=== PATIENT | male | born 1975 | race Caucasian/White ===

== ENCOUNTER 2016-09-03 00:10 | Emergency (ER) | payer BC, OTHER ==
[~2016-09-03] VITALS: Ht 177.8 cm; Wt 95.2 kg
[2016-09-03 00:17] VITALS: TEMP 36.8; Ht 177.8 cm; Wt 95.2 kg
[2016-09-03] MEDS ORDERED: SODIUM CHLORIDE 0.9% 1000ML 1,000 ML IV ONE (00:30)
[2016-09-03] MEDS ORDERED: ONDANSETRON INJ 2 MG/ML 2 ML VIAL IV STA (00:30)
[2016-09-03] MEDS ORDERED: KETOROLAC TROMETHAMINE 30 MG/ML VIAL IV STA (00:30)
[2016-09-03 00:49] LABS: BASO % 0.7 %; BASO ABS # 0.04 K/uL (0-0.2); COMPLETE YES; EOS % 2.7 %; HEMATOCRIT 45.5 % (42-52); IG% 0.2 %; LYMPH % 37.3 %; LYMPH ABS # 2.06 K/uL (1.2-3.4); MEAN CELL VOLUME 88.9 fL (80-100); MEAN CORPUSCULAR HEMOGLOBIN 31.1 pg (25-34); MEAN CORPUSCULAR HGB CONC 34.9 g/dl (32-36); MEAN PLATELET VOLUME 9.6 fL (7.4-10.4); NEUT % 48.1 %; PLATELET COUNT 269 K/uL (130-400); RED BLOOD COUNT 5.12 M/uL (4.7-6.1); WHITE BLOOD COUNT 5.53 K/uL (4.8-10.8)
--- NOTE | 2016-09-03 01:02 | DIAGNOSTIC IMAGING REPORT ---
CT SCAN OF THE ABDOMEN AND PELVIS WITHOUT IV CONTRAST CLINICAL HISTORY: Left flank pain. Hematuria. COMPARISON STUDY: No priors. TECHNIQUE: CT scan of the abdomen and pelvis is performed from the lung bases to the proximal femora. Images are reviewed in the axial, sagittal, and coronal planes. IV contrast was not administered for this examination. Automated dose control exposure was utilized. CT DOSE: 1056.00 mGy.cm FINDINGS: Lung bases: The heart is normal in size and without pericardial effusion. The lung bases are clear. Liver: The unenhanced liver is normal in size, contour, and attenuation. There is no intrahepatic biliary ductal dilatation. Gallbladder: Unremarkable. Spleen: Normal in size and attenuation. There is a 1.8 cm low-attenuation structure in the spleen seen on image #115. Pancreas: Unremarkable. Adrenal glands: Adrenal glands are normal in appearance. Subcentimeter calcified nodules adjacent to the right adrenal gland are of doubtful significance. Kidneys: The unenhanced kidneys are normal in size. There is a 4 mm obstructing calculus in the mid left ureter at the level of L4 seen on axial image #238. This causes minimal left-sided hydronephrosis. There is no right-sided hydronephrosis. There is an additional punctate nonobstructing calculus in the left kidney. A 3 mm nonobstructing calculus is noted in the right kidney. Parapelvic cysts are suggested on the left. There is no evidence of contour deforming renal mass lesion. Abdominal vasculature: The abdominal aorta is normal in course and caliber. Bowel: The small bowel and colon are normal in course and caliber. A 10 mm duodenal lipoma is incidentally noted on image #171. The appendix is not identified and reported surgically absent. Peritoneum: There is no intraperitoneal free air or abdominal ascites. There is a fat-containing umbilical hernia. Lymphadenopathy: None. Pelvic viscera: The bladder is decompressed and not evaluated. The prostate and seminal vesicles are normal as imaged. 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 Skeletal structures: No lytic or blastic lesions are seen. IMPRESSION: 1. There is a 4 mm obstructing calculus in the mid left ureter. This causes minimal left-sided hydronephrosis. 2. Additional small nonobstructing calculi are seen in both kidneys. 3. Additional findings as above. Electronically signed by: Tyron Carr M.D. 09/03/2016 1:00 AM Dictated Date/Time: 09/03/2016 12:52 AM
[2016-09-03 01:07] LABS: BUN/CREATININE RATIO 20.1 (10-20); CALCIUM 8.7 mg/dl (8.5-10.1); CREATININE 0.98 mg/dl (0.60-1.40); POTASSIUM 3.6 mmol/L (3.5-5.1)
[2016-09-03 01:10] LABS: ALB/GLOB RATIO 1.4 (0.9-2)
[2016-09-03 01:42] LABS: URINE APPEARANCE CLEAR (CLEAR); URINE COLOR ORANGE; URINE NITRITE NEG (NEG); URINE PH 5.5 (4.5-7.5); URINE SPECIFIC GRAVITY 1.036 (1.000-1.030); UROBILINOGEN NEG (NEG); ZZUR CULT IF INDIC CLEAN CATCH NO
[2016-09-03 01:44] LABS: MANUAL MICROSCOPIC REQUIRED? NO; REVIEW REQ? NO; URINE BILIRUBIN NEG (NEG)
[2016-09-03] MEDS ORDERED: OXYC1TAB3 PO (01:45)
[2016-09-03] MEDS ORDERED: OXYCODONE IR HOME PACK PO ONE (01:45)
[2016-09-03] MEDS ORDERED: TAMS0.4C38 PO (01:45)
[2016-09-03] MEDS ORDERED: ONDANSETRON HOME PACK 4MG OD TAB PO ONE (01:45)
[2016-09-03] MEDS ORDERED: ONDA4TAB10 SL (01:45)
[2016-09-03 01:49] VITALS: BP 140/94; PULSE 72; O2SAT 96
--- NOTE | 2016-09-03 07:05 | EMERGENCY ROOM VISIT NOTE ---
History First contact with patient: 00:23 Chief Complaint: ABDOMINAL PAIN Stated Complaint: STOMACH PAIN Nursing Triage Summary: c/o llq abd pain for 2 days. does lift and use supplements including creatine urine dark in color. History of Present Illness The patient is a 40 year old male who presents to the Emergency Room with complaints of left-sided back pain that is radiating into his left lower quadrant. He states his pain is intermittent in nature. He did notice a change in his urine color, and states it is very dark today. The patient has not had fever or chills. He does have a history of kidney stones in the past. He rates his discomfort a 2/10 currently but a 9/10 at worst. He has not taken anything [id number] for his discomfort. Review of Systems More than 10 systems were reviewed and otherwise negative with the exception of history of present illness. Past Medical/Surgical History History of ureteral calculi Family History No pertinent family history Social History Smoking Status: Never Smoker Housing Status: lives with family Occupation Status: employed Current/Historical Medications Scheduled Ondasetron Odt (Zofran Odt), 4 MG SL Q6H Oxycodone Immediate Rel Tab (Roxicodone Ir), 1-2 TAB PO Q6 Tamsulosin Hcl (Flomax), 0.4 MG PO DAILY Physical Exam Vital Signs Date Time Temp Pulse Resp B/P (MAP) Pulse Ox O2 Delivery O2 Flow Rate FiO2 09/03/16 01:49 72 18 140/94 96 Room Air 09/03/16 01:02 66 18 143/92 96 Room Air 09/03/16 00:17 36.8 74 19 169/109 98 Room Air Pain Rating (0-10): 2.0 Physical Exam VITALS: Vitals are noted on the nurse's note and reviewed by myself. Vital signs stable. GENERAL: Well-developed, well-nourished, white male, who is in no acute distress and resting comfortably. Patient is cooperative with the examination. HEAD: Normocephalic atraumatic. HEART: Regular rate and rhythm without murmurs gallops or rubs. LUNGS: Clear to auscultation bilaterally without wheezes, rales or rhonchi. No retractions or accessory muscle use. ABDOMEN: Positive normal bowel sounds x 4. Soft, nontender, without masses or organomegaly. No guarding or rebound tenderness. No CVA tenderness. MUSCULOSKELETAL: No muscle atrophy, erythema, or edema noted. Full range of motion without joint tenderness in all extremities. Medical Decision & Procedures ER Provider Diagnostic Interpretation: CT SCAN OF THE ABDOMEN AND PELVIS WITHOUT IV CONTRAST CLINICAL HISTORY: Left flank pain. Hematuria. COMPARISON STUDY: No priors. TECHNIQUE: CT scan of the abdomen and pelvis is performed from the lung bases to the proximal femora. Images are reviewed in the axial, sagittal, and coronal planes. IV contrast was not administered for this examination. Automated dose control exposure was utilized. CT DOSE: 1056.00 mGy.cm FINDINGS: Lung bases: The heart is normal in size and without pericardial effusion. The lung bases are clear. Liver: The unenhanced liver is normal in size, contour, and attenuation. There is no intrahepatic biliary ductal dilatation. Gallbladder: Unremarkable. Spleen: Normal in size and attenuation. There is a 1.8 cm low-attenuation structure in the spleen seen on image #115. Pancreas: Unremarkable. Adrenal glands: Adrenal glands are normal in appearance. Subcentimeter calcified nodules adjacent to the right adrenal gland are of doubtful significance. Kidneys: The unenhanced kidneys are normal in size. There is a 4 mm obstructing calculus in the mid left ureter at the level of L4 seen on axial image #238. This causes minimal left-sided hydronephrosis. There is no right-sided hydronephrosis. There is an additional punctate nonobstructing calculus in the left kidney. A 3 mm nonobstructing calculus is noted in the right kidney. Parapelvic cysts are suggested on the left. There is no evidence of contour deforming renal mass lesion. Abdominal vasculature: The abdominal aorta is normal in course and caliber. Bowel: The small bowel and colon are normal in course and caliber. A 10 mm duodenal lipoma is incidentally noted on image #171. The appendix is not identified and reported surgically absent. Peritoneum: There is no intraperitoneal free air or abdominal ascites. There is a fat-containing umbilical hernia. Lymphadenopathy: None. Pelvic viscera: The bladder is decompressed and not evaluated. The prostate and seminal vesicles are normal as imaged. 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 Skeletal structures: No lytic or blastic lesions are seen. IMPRESSION: 1. There is a 4 mm obstructing calculus in the mid left ureter. This causes minimal left-sided hydronephrosis. 2. Additional small nonobstructing calculi are seen in both kidneys. 3. Additional findings as above. Laboratory Results 09/03/16 00:30 Red Blood Count 5.12, Mean Corpuscular Volume 88.9, Mean Corpuscular Hemoglobin 31.1, Mean Corpuscular Hemoglobin Concent 34.9, Mean Platelet Volume 9.6, Neutrophils (%) (Auto) 48.1, Lymphocytes (%) (Auto) 37.3, Monocytes (%) (Auto) 11.0, Eosinophils (%) (Auto) 2.7, Basophils (%) (Auto) 0.7, Neutrophils # (Auto ) 2.66, Lymphocytes # (Auto) 2.06, Monocytes # (Auto) 0.61, Eosinophils # (Auto ) 0.15, Basophils # (Auto) 0.04 09/03/16 00:30 Test 09/03/16 00:00 09/03/16 00:30 Urine Color ORANGE Urine Appearance CLEAR (CLEAR) Urine pH 5.5 (4.5-7.5) Urine Specific [place] 1.036 (1.000-1.030) Urine Protein 2+ (NEG) Urine Glucose (UA) NEG (NEG) Urine Ketones 1+ (NEG) Urine Occult Blood 3+ (NEG) Urine Nitrite NEG (NEG) Urine Bilirubin NEG (NEG) Urine Urobilinogen NEG (NEG) Urine Leukocyte Esterase NEG (NEG) Urine WBC (Auto) 5-10 /hpf (0-5) Urine RBC (Auto) >30 /hpf (0-4) Urine Hyaline Casts (Auto) 1-5 /lpf (0-5) Urine Epithelial Cells (Auto) 5-10 /lpf (0-5) Urine Bacteria (Auto) NEG (NEG) White Blood Count 5.53 K/uL (4.8-10.8) Red Blood Count 5.12 M/uL (4.7-6.1) Hemoglobin 15.9 g/dL (14.0-18.0) Hematocrit 45.5 % (42-52) Mean Corpuscular Volume 88.9 fL (80-100) Mean Corpuscular Hemoglobin 31.1 pg (25-34) Mean Corpuscular Hemoglobin Concent 34.9 g/dl (32-36) Platelet Count 269 K/uL (130-400) Mean Platelet Volume 9.6 fL (7.4-10.4) Neutrophils (%) (Auto) 48.1 % Lymphocytes (%) (Auto) 37.3 % Monocytes (%) (Auto) 11.0 % Eosinophils (%) (Auto) 2.7 % Basophils (%) (Auto) 0.7 % Neutrophils # (Auto) 2.66 K/uL (1.4-6.5) Lymphocytes # (Auto) 2.06 K/uL (1.2-3.4) Monocytes # (Auto) 0.61 K/uL (0.11-0.59) Eosinophils # (Auto) 0.15 K/uL (0-0.5) Basophils # (Auto) 0.04 K/uL (0-0.2) RDW Standard Deviation 39.4 fL (36.4-46.3) RDW Coefficient of Variation 12.3 % (11.5-14.5) Immature Granulocyte % (Auto) 0.2 % Immature Granulocyte # (Auto) 0.01 K/uL (0.00-0.02) Anion Gap 5.0 mmol/L (3-11) Est Creatinine Clear Calc Drug Dose 113.7 ml/min Estimated GFR () 109.8 Estimated GFR (Non- 94.7 BUN/Creatinine Ratio 20.1 (10-20) Calcium Level 8.7 mg/dl (8.5-10.1) Total Bilirubin 0.7 mg/dl (0.2-1) Aspartate Amino Transf (AST/SGOT) 20 U/L (15-37) Alanine Aminotransferase (ALT/SGPT) 33 U/L (12-78) Alkaline Phosphatase 56 U/L (45-117) Total Protein 6.9 gm/dl (6.4-8.2) Albumin 4.0 gm/dl (3.4-5.0) Globulin 2.9 gm/dl (2.5-4.0) Albumin/Globulin Ratio 1.4 (0.9-2) Lipase 172 U/L (73-393) Medications Administered Medications (Trade) Dose Ordered Sig/Sulaiman Route Start Time Stop Time Status Last Admin Dose Admin Sodium Chloride 1,000 ml @ 999 mls/hr Q1H1M ONCE IV 09/03/16 00:30 09/03/16 01:30 DC 09/03/16 00:58 999 MLS/HR Ketorolac Tromethamine (Toradol Inj) 30 mg NOW STAT IV 09/03/16 00:30 09/03/16 00:32 DC 09/03/16 00:59 30 MG Ondansetron HCl (Zofran Inj) 4 mg NOW STAT IV 09/03/16 00:30 09/03/16 00:32 DC 09/03/16 00:59 4 MG Oxycodone HCl (Roxicodone Immediate Rel 5MG Home Pack) 1 homepack UD ONCE PO 09/03/16 01:45 09/03/16 01:46 DC 09/03/16 01:56 1 HOMEPACK Ondansetron HCl (ZOFRAN ODT 4MG Home Pack) 1 homepack UD ONCE PO 09/03/16 01:45 09/03/16 01:46 DC 09/03/16 01:56 1 HOMEPACK ED Course Physical exam and history were performed. Nursing notes and EMR were reviewed. Patient appears to have left flank pain for the past few days. IV access was established and labs were obtained. Patient was hydrated and medicated as above. CT scan was performed. The patient's blood work is as above and was reviewed. He does not have a significant elevated white blood cell count, gross anemia, bandemia, or significant electrolyte imbalance. Lipase and transaminases are nondiagnostic. His urine is with hematuria but no evidence of infection. CT scan does reveal a ureteral calculi, which clinically does correlate with his symptoms. I discussed options of care with patient including admission to the hospital. The patient felt very comfortable with pain control and would like to try outpatient energy. He will be given a course of pain medication, Zofran, and Flomax. He will be given information to follow with urology. The patient was certainly very back to ER with any new, worsening, or concerning symptoms. The chart was completed utilizing [employer] Voice Recognition Software. Grammatical errors, random word insertions, pronoun errors, and incomplete sentences are an occasional consequence of this system due to software limitations, ambient noise, and hardware issues. Any formal questions or concerns about the content, text, or information contained within the body of this dictation should be directly addressed to the provider for clarification. . Medical Decision Differential diagnosis: Etiologies such as renal colic, appendicitis, diverticulitis, mesenteric ischemia, aortic pathology, infections, inflammatory bowel disease, PUD, biliary pathology, UTI, as well as others were entertained. Impression Primary Impression: Ureteral calculus, left Departure Information Dispostion Home / Self-Care Condition GOOD Prescriptions Ondasetron Odt (ZOFRAN ODT) 4 Mg Tab 4 MG SL Q6H for Nausea, #12 TAB Prov: Mihir Zuluaga PA-C 09/03/16 Tamsulosin Hcl (FLOMAX) 0.4 Mg Cap 0.4 MG PO DAILY for 7 Days, #7 CAP Prov: Mihir Zuluaga PA-C 09/03/16 Oxycodone Immediate Rel Tab (ROXICODONE IR) 5 Mg Tab 1-2 TAB PO Q6 for Pain, #24 TAB Prov: Mihir Zuluaga PA-C 09/03/16 Referrals Bronson Magdaleno M.D. Forms Call Back Authorization, HOME CARE DOCUMENTATION FORM, Work Instructions, Additional Instructions: Patient was seen and evaluated today in the emergency department fo medical care. Return to work on 09/06/2016. Please excuse. IMPORTANT VISIT INFORMATION Patient Instructions My [facility] Additional Instructions You were seen and evaluated today on an emergency basis only. This is not a substitute for, or an effort to provide, complete comprehensive medical care. It is not possible to recognize and treat all injuries or illnesses in a single emergency department visit. For this reason it is recommended that you followup with Urology, Dr. Magdaleno's office, by telephone on Sunday to arrange a follow-up visit this week. Let them know you were seen in the emergency department to help facilitate care. For baseline pain relief you may alternate ibuprofen and acetaminophen every 4 hours for pain control. Take 600 mg ibuprofen (Advil) and then 4 hours later take 1000 mg acetaminophen (Tylenol). Do not take more than 3000 mg acetaminophen in a single day. Oxycodone (OxyIR) 5mg: Take ONE or TWO pills take Flomax once daily every SIX hours for breakthrough pain. Avoid alcohol, operating machinery or dangerous equipment, working on ladders or roofs, DRIVING, or situations where being under the influence may be dangerous. It is recommended to use an over-the- counter stool softener such as Colace, 100mg twice daily while taking this medication to avoid constipation. Zofran 1 tablet every 6 hrs as needed for nausea. Take Flomax once daily You are welcome to return to the emergency department anytime with new, worsening, or concerning symptoms. Work Instructions Additional Work Instructions: Patient was seen and evaluated today in the emergency department for medical care. Return to work on 09/06/2016. Please excuse.
[2016-09-19] MEDS ORDERED: TAMS0.4C38 PO (14:27)
== END 2016-09-03 02:03 | disposition home or self-care (01) ==
LOC: C.EDB 00:12
DX: N20.1 Calculus of ureter (principal); Z87.442 Personal history of urinary calculi

== ENCOUNTER → 2016-09-14 | Outpatient (CLI) | payer BC ==
[~2016-09-14] MED LIST: ONDA4TAB10 SL; OXYC1TAB3 PO; TAMS0.4C38 PO
--- NOTE | 2016-09-14 14:59 | DIAGNOSTIC IMAGING REPORT ---
CHEST 2 VIEWS ROUTINE CLINICAL HISTORY: 40 years-old Male presenting with URETERAL CALCULUS. TECHNIQUE: PA and lateral views of the chest were obtained. COMPARISON: None. FINDINGS: Cardiomediastinal silhouette normal. Lungs and pleural spaces clear. Osseous structures and upper abdomen normal. IMPRESSION: 1. No acute cardiopulmonary disease. Electronically signed by: Golden Mcneal M.D. 09/14/2016 2:58 PM Dictated Date/Time: 09/14/2016 2:57 PM
--- NOTE | 2016-09-14 15:00 | DIAGNOSTIC IMAGING REPORT ---
KUB CLINICAL HISTORY: URETERAL CALCULUS COMPARISON STUDY: CT scan dated 09/03/2016 FINDINGS: The bowel gas pattern is unremarkable. There is a punctate right renal calculus. The recently described proximal left ureteral calculus is not visualized on conventional radiographic imaging. IMPRESSION: 1. Normal bowel gas pattern 2. Right-sided nephrolithiasis 3. The recently described proximal left ureteral calculus is not visualized on conventional radiographic imaging Electronically signed by: Long Owens M.D. 09/14/2016 2:59 PM Dictated Date/Time: 09/14/2016 2:57 PM
== END | disposition home or self-care (01) ==
LOC: C.CPL 14:17
PROVIDERS: ATTEND Nurse Practitioner Adult Health
DX: N20.1 Calculus of ureter (principal)

== ENCOUNTER → 2016-09-20 | Outpatient (CLI) | payer BC ==
[~2016-09-20] MED LIST changes: -ONDA4TAB10 SL; +OPTIRAY 300 IV PRN; -OXYC1TAB3 PO
--- NOTE | 2016-09-20 15:02 | DIAGNOSTIC IMAGING REPORT ---
IVP W/OR W/O TOMOGRAMS CLINICAL HISTORY: Ureteral calculus. COMPARISON STUDY: CT of the abdomen and pelvis September 03, 2016 and KUB September 14, 2016. TECHNIQUE: Initially, a prop attendant KUB was obtained. An IVP was then performed following intravenous injection of 100 cc of Optiray 320 IV. FINDINGS: No ureteral calculi are identified on this exam. A 3 mm calculus within the upper pole of the right kidney is noted. Both nephrograms are symmetric. There is no hydronephrosis or hydroureter. The left calyces are distorted by parapelvic cysts which were shown on prior CT. No upper tract urothelial lesions are identified. The left ureteral calculus shown on CT of September 03, 2016 is not visualized. The bladder is suboptimally assessed utilizing this technique but appears unremarkable. IMPRESSION: 1. No ureteral calculi identified. The left ureteral calculus shown on CT of September 03, 2016 is not visualized on this exam. 2. 3 mm right renal calculus. 3. No hydronephrosis or hydroureter. Electronically signed by: Kristopher Osullivan M.D. 09/20/2016 3:01 PM Dictated Date/Time: 09/20/2016 2:36 PM
== END | disposition home or self-care (01) ==
LOC: C.RAD 13:15
PROVIDERS: ATTEND Nurse Practitioner Adult Health
DX: N20.1 Calculus of ureter (principal)

== ENCOUNTER → 2016-09-22 | Day surgery (SDC) | payer BC ==
[2016-09-19 14:27] VITALS: Ht 179.1 cm; Wt 88.6 kg
[~2016-09-22] VITALS: Ht 179.1 cm; Wt 88.6 kg
[~2016-09-22] MED LIST changes: +ATROPINE SULFATE 0.1 MG/ML 5ML SYR IV PRN; +CIPROFLOXACIN 400MG / D5W IV SCH; +DEXAMETHASONE SOD INJ 4 MG/ML VIAL IV PRN; +EpHEDrine SULFATE INJ 50 MG/ML AMP IV PRN; +FENTANYL CITRATE INJ 50 MCG/1 ML 2 ML VIAL IV PRN; +FENTANYL CITRATE INJ 50 MCG/1 ML 2 ML VIAL ONE; +KETOROLAC TROMETHAMINE 30 MG/ML VIAL IV. PRN; +LABETALOL HCL IV 5 MG/ML 20ML IV PRN; +LACTATED RINGER'S 1000ML 1,000 ML IV SCH; +LIDOCAINE HCL 2% 2 ML VIAL (20MG/ML) ONE; +METOCLOPRAMIDE HCL INJ 5 MG/ML 2 ML VIAL IV PRN; +MIDAZOLAM HCL 1 MG/ML 2ML VIAL ONE; +MoRPHine SULFATE 10 MG/ML CARP/VIAL IV PRN; +ONDANSETRON INJ 2 MG/ML 2 ML VIAL IV PRN; -OPTIRAY 300 IV PRN; +PHENYLEPHRINE 100MCG/ML 5ML SYR IV PRN; +PROPOFOL IV EMULSION 10 MG/ML 20 ML VIAL IV ONE
[2016-09-22 10:07] VITALS: TEMP 37.1
--- NOTE | 2016-09-22 12:13 | History & Physical Bridge Note ---
H&P Re-Evaluation Bridge Note: I have examined the patient, reviewed the History & Physical and in the interval since the performance of the History & Physical I have noted the following changes of clinical significance: No changes noted
--- NOTE | 2016-09-22 12:26 | Progress Note ---
Progress Note Date of Service Sep 22, 2016. Progress Note Fluoroscopic examination conducted with focus on the right kidney. Unable to identify a stone. Decision made to abort the procedure and discharge patient home.
--- NOTE | 2016-09-22 12:39 | Anesthesia Progress Nt - [facility] ---
Anesthesia Post Op Note Date & Time Sep 22, 2016 at 12:38 Vital Signs Pain Intensity: 0 Vital Signs Past 12 Hours Date Time Temp Pulse Resp B/P (MAP) Pulse Ox O2 Delivery O2 Flow Rate FiO2 09/22/16 10:07 37.1 75 22 144/95 (111) 99 Room Air Notes Mental Status: alert / awake / arousable, participated in evaluation Pt Amnestic to Procedure: Yes Nausea / Vomiting: adequately controlled Pain: adequately controlled Airway Patency, RR, SpO2: stable & adequate BP & HR: stable & adequate Hydration State: stable & adequate Anesthetic Complications: no major complications apparent
[2016-09-22 12:50] VITALS: BP 145/98; PULSE 84; O2SAT 97
== END | disposition home or self-care (01) ==
LOC: X.SURG 09:35
PROVIDERS: ATTEND Urology
DX: N20.0 Calculus of kidney (principal); Z53.8 Procedure and treatment not carried out for other reasons